=== PATIENT | female | born 1940 | race Caucasian/White ===

== ENCOUNTER → 2020-02-25 08:24 | Outpatient (CLI) | payer MEDICARE, SELFPAY ==
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
== END ==
PROVIDERS: PCP Internal Medicine; Visit Provider Physician Assistant Medical
DX: M47.22 Other spondylosis with radiculopathy, cervical region (principal)
CPT/HCPCS: 72141

== ENCOUNTER 2020-08-03 14:19 | Outpatient (CLI) | payer MEDICARE, SELFPAY | END 2020-08-03 14:20 | disposition home or self-care (01) | LOC: ANHCOVIDVC 14:19 | PROVIDERS: PCP Internal Medicine | DX: Z23 Encounter for immunization (principal) | CPT/HCPCS: 0001A; 91300 ==

== ENCOUNTER 2020-08-24 14:21 | Outpatient (CLI) | payer MEDICARE, SELFPAY | END 2020-08-24 14:22 | disposition home or self-care (01) | LOC: ANHCOVIDVC 14:21 | PROVIDERS: PCP Internal Medicine | DX: Z23 Encounter for immunization (principal) | CPT/HCPCS: 0002A; 91300 ==

== ENCOUNTER 2022-03-02 08:00 | Outpatient (NON) | payer MEDICARE, BC, SELFPAY | END 2022-03-02 08:01 | disposition home or self-care (01) | PROVIDERS: PCP Physician Assistant Medical; Visit Provider Nurse Practitioner | DX: L98.9 Disorder of the skin and subcutaneous tissue, unspecified (principal); M35.89 Other specified systemic involvement of connective tissue | CPT/HCPCS: 88305; 88342 ==

== ENCOUNTER 2023-03-27 09:00 | Outpatient (RCR) | payer MEDICARE, SELFPAY ==
--- NOTE | 2023-02-20 16:19 | OPREHPOC ---
Outpatient Therapy Plan of Care This is a Multidisciplinary Plan of Care that may contain components documented by all disciplines (PT, OT, and ST.) PT Problem 1 PT Problem #1 Knowledge Deficit PT Goal 1 Goal 1. Patient will perform independent HEP Target Visit 9 PT Problem 2 PT Problem #2 Impaired Strength PT Goal 1 Goal 1. Improve pelvic floor strength to 4/5 to decrease incontinence 2. Improve pelvic floor endurance to 10 seconds to decrease incontinence Target Visit 9 PT Problem 3 PT Problem #3 Impaired Functional ADLs PT Goal 1 Goal 1. Patient will report no more than 2 instances of urinary and fecal incontinence per week 2. Patient will have to use no more than 2 diapers per week for skin integrity Target Visit 9
--- NOTE | 2023-02-20 16:19 | PTOPEVAL1 ---
Assessment and note entered by Abby Gómez DPT Evaluation Information Assessment Status Evaluation Subjective Information Pt reports she has been having trouble for about 20 years and they are worsening over time. Notices she is losing stool within 15-30 minutes after eating. Occurs multiple times a day. Also reports loss of urine multiple times a day. Changes clothes frequently. Urinates about 10 times a day and multiple times a night. Urinary incontinence at least 3 times a day. Wears 3-4 diapers a day. Cannot hold urge to void at all. Denies pain with urination. BM multiple times a day, without pain but does report soreness due to rash from wearing diapers. No history of pelvic pain. Pt has been 3 times with 3 deliveries, vaginal deliveries (last with significant tearing/stitches ). Pt reports she does not notice a correlation with her diet and fecal incontinence. Liver transplant and previous labiectomy. Partial hysterectomy and tied up my bladder . No other b/ b issues. Reported Pain Level Pain Score 0: Self Report Assessment PT Clinical Summary The patient is presenting to skilled therapy with a 20 year history of worsening urinary and fecal incontinence. She presents with decreased pelvic floor strength and endurance as well as decreased overall core strength which are contributing to her incontinence multiple times daily. She will highly benefit from therapy to address these impairments in order to reduce incontinence and improve skin integrity from diaper use. Plan of Care Interventions Manual Therapy,Neuro Re-education,Patient/ Caregiver Education,Therapeutic Activities, Therapeutic Exercise PT Services Indicated Yes Treatment Frequency and 1 time a week for 8 weeks Duration These treatments will address the objective and functional deficits as defined above. The patient will be advanced safely and appropriately in order for the patient to progress towards his/her prior level of function. Additional exercises will be introduced and as well as a comprehensive home exercise program upon discharge, if needed, ?to ensure carryover of functional gains achieved in the clinic. This treatment plan has been reviewed and agreement upon by the patient.
--- NOTE | 2023-03-13 14:49 | PCPTNOTE ---
Patient called to cancel appointment on 03/13/23 due to illness.
--- NOTE | 2023-03-20 11:09 | OPREHPOC ---
Outpatient Therapy Plan of Care This is a Multidisciplinary Plan of Care that may contain components documented by all disciplines (PT, OT, and ST.) PT Problem 1 PT Problem #1 Knowledge Deficit PT Goal 1 Goal 1. Patient will perform independent HEP Target Visit 9 Progress Partially Met PT Problem 2 PT Problem #2 Impaired Strength PT Goal 1 Goal 1. Improve pelvic floor strength to 4/5 to decrease incontinence 2. Improve pelvic floor endurance to 10 seconds to decrease incontinence Target Visit 9 Progress Not Met PT Problem 3 PT Problem #3 Impaired Functional ADLs PT Goal 1 Goal 1. Patient will report no more than 2 instances of urinary and fecal incontinence per week 2. Patient will have to use no more than 2 diapers per week for skin integrity Target Visit 9 Progress Partially Met
--- NOTE | 2023-03-20 11:09 | PTOPPROGNS ---
Assessment and note entered by Abby Gómez DPT Evaluation Information Assessment Status Progress Subjective Information Pt reports she feels therapy is helping, is getting her incontinence less often. Urinary incontinence is occurring daily but unsure how many times. Fecal incontinence 2 times in the last week. Has started to notice a correlation with some dietary triggers. Using 3 diapers a day currently. Assessment PT Clinical Summary The patient has made some progress in therapy and reports only 2 instances of fecal incontinence in the last week. She continues to have daily urinary incontinence. She demonstrates improved hip strength but likely continued pelvic floor weakness. Due to her progress but continued incontinence, she will benefit from further therapy to reduce incontinence and improve function. Plan of Care Interventions Manual Therapy,Neuro Re-education,Patient/ Caregiver Education,Therapeutic Activities, Therapeutic Exercise PT Services Indicated Yes Treatment Frequency and 1 time a week for 4 visits Duration These treatments will address the objective and functional deficits as defined above. The patient will be advanced safely and appropriately in order for the patient to progress towards his/her prior level of function. Additional exercises will be introduced and as well as a comprehensive home exercise program upon discharge, if needed, ?to ensure carryover of functional gains achieved in the clinic. This treatment plan has been reviewed and agreement upon by the patient.
--- NOTE | 2023-04-03 08:55 | PCPTNOTE ---
Patient called to cancel appointment on 04/03/23.
--- NOTE | 2023-04-10 09:49 | PCPTNOTE ---
Patient called to cancel appointment 04/10/23 due to covid.
--- NOTE | 2023-04-17 09:26 | PCPTNOTE ---
Patient cancelled appointment 04/17/23 due to still not feeling well from covbritany. Will call back to schedule more after seeing her MD this week.
--- NOTE | 2023-05-18 10:03 | PTOPDC ---
Assessment and note entered by Abby Gómez DPT Evaluation Information Assessment Status Discharge - Pt Not Present Subjective Information - Assessment PT Clinical Summary Patient has not attended therapy since 03/25/23 and has not called back to reschedule after an illness. She will be discharged this date and need a new script to resume therapy in the future. Plan of Care PT Services Indicated No
== END 2023-05-18 14:27 | disposition home or self-care (01) ==
LOC: ANHPT 09:00
PROVIDERS: PCP Physician Assistant Medical; Visit Provider Physician Assistant Medical
DX: N81.89 Other female genital prolapse (principal)
CPT/HCPCS: 97112; 97161; 97530

== ENCOUNTER 2023-04-03 10:44 | Outpatient (CLI) | payer MEDICARE, SELFPAY ==
[2023-04-03 12:09] LABS: Influenza A QL RT-PCR Negative (Negative); Influenza B QL RT-PCR Negative (Negative); RSV RNA, RT-PCR Negative (Negative); SARS-CoV-2 RNA PCR Positive (Negative)
== END 2023-04-03 10:45 | disposition home or self-care (01) ==
PROVIDERS: PCP Physician Assistant Medical; Visit Provider Physician Assistant Medical
DX: R50.9 Fever, unspecified (principal); R05.9 Cough, unspecified; Z20.822 Contact with and (suspected) exposure to COVID-19
CPT/HCPCS: 87637

== ENCOUNTER 2023-09-25 12:39 | Outpatient (CLI) | payer MEDICARE, SELFPAY ==
--- NOTE | 2023-09-25 13:21 | ECHO_ITS ---
Patient Info Name: Katarina Arreola Age: 83 years : 1940 Gender: Female Ht: 63 in Wt: 197 lbs BSA: 2.03 m2 HR: 73 bpm BP: 145 / 93 mmHg Heart Rhythm: Sinus Rhythm Technical Quality: Fair Exam Date: 09/25/2023 2:16 PM Exam Location: [facility] Patient Status: Outpatient Admit Date: 09/25/2023 Staff Ordering Physician: Mary Jo Ruggiero PA-C Airport Manager: Ebony Walkre RDCS Attending Provider: Mary Jo Ruggiero PA-C Referring Physician: Monik POLANCO; Exam Type: CA echo doppler color flow Study Info Indications R06.09 - Other forms of dyspnea Complete two-dimensional, color flow and Doppler transthoracic echocardiogram is performed. Summary 1. Complete two-dimensional, color flow and Doppler transthoracic echocardiogram is performed. 2. Left ventricular chamber dimension is normal. 3. Left ventricular systolic function is hyperdynamic, estimated at >70%. 4. There is moderate concentric increased left ventricular wall thickness. 5. The left ventricular diastolic function is grade I diastolic dysfunction. 6. E/e' 18 is elevated. 7. Left atrial chamber dimension is mildly enlarged. 8. There is moderate aortic valve sclerosis. 9. The mitral valve has moderately calcified annulus. 10. No pulmonary hypertension, estimated pulmonary arterial systolic pressure is 25 mmHg. 11. There is trace pulmonic regurgitation. Left Ventricle E/e' 18 is elevated. Left ventricular chamber dimension is normal. Left ventricular systolic function is hyperdynamic, estimated at >70%. There is moderate concentric increased left ventricular wall thickness. The left ventricular diastolic function is grade I diastolic dysfunction. Right Ventricle Right ventricular systolic function is normal and with normal TAPSE 1.9 cm. Right ventricular chamber dimension is normal. Left Atria Left atrial chamber dimension is mildly enlarged. Right Atria Right atrial chamber dimension is normal. Aortic Valve The aortic valve is trileaflet. There is moderate aortic valve sclerosis. There is no aortic valve stenosis. There is no aortic valve regurgitation. Pulmonic Valve There is trace pulmonic regurgitation. Mitral Valve The mitral valve has moderately calcified annulus. There is no mitral valve stenosis. There is no mitral valve regurgitation. Tricuspid Valve There is no tricuspid valve regurgitation. No pulmonary hypertension, estimated pulmonary arterial systolic pressure is 25 mmHg. Pericardium/Pleural There is no pericardial effusion. Inferior Vena Cava Normal inferior vena cava with >50% collapse upon inspiration consistent with normal right atrial pressure, 5 mmHg. Aorta The aortic root size at the sinus of Valsalva is normal. Left Ventricular Outflow Tract Name Value Normal LVOT 2D LVOT Diameter 2.0 cm LVOT Doppler LVOT Peak Gradient 5 mmHg LVOT Mean Gradient 2 mmHg LVOT VTI 20 cm LVOT VTI/AV VTI Ratio 0.6 LVOT Stroke Volume 64 ml LVOT CO 4.5 l/min LVOT CI 2.2 l/min/m2 Pulmon
--- NOTE | 2023-09-26 12:31 | WPDPFTINT ---
PFT Procedure Performed PFT Procedure Performed Spirometry with Pre/Post Bronchodilator Plethysmography (Lung Vol) Diffusing Cap (DLCO) Flow Vol Loop PFT Interpretation Lung volumes were measured with the body plethysmography method. The diminished lung volumes are indicative of a restrictive respiratory disease. Spirometry showed diminished expiratory flow rates and a normal FEV1 to FVC ratio 75%, also consistent with restrictive respiratory disease. Following administration of a bronchodilator there was no significant increase in the expiratory flow rates. Lung diffusion capacity is moderately reduced at 45% predicted. The flow-volume loop is unremarkable. Impression: Mild restrictive respiratory disease. Moderately reduced lung diffusion capacity.
== END 2023-09-25 12:40 | disposition home or self-care (01) ==
LOC: ANHPFT 12:40
PROVIDERS: PCP Physician Assistant Medical; Visit Provider Physician Assistant Medical
DX: R06.09 Other forms of dyspnea (principal); J98.4 Other disorders of lung; I51.89 Other ill-defined heart diseases; I35.8 Other nonrheumatic aortic valve disorders; I34.81 Nonrheumatic mitral (valve) annulus calcification
CPT/HCPCS: 93306; 94060; 94726; 94729

== ENCOUNTER 2024-01-18 15:32 | Outpatient (CLI) | payer MEDICARE, SELFPAY ==
--- NOTE | ~2024-01-18 | CT_ITS ---
EXAMINATION: CT abdomen pelvis wo con DATE: 01/18/2024 16:03 INDICATION: Abdominal pain. TECHNIQUE: Computed tomography (CT) of the abdomen and pelvis was performed without intravenous contr ast. Automated exposure control and iterative reconstruction technique were employed. The dose-length product was 1028.10 mGy-cm. COMPARISON: None. FINDINGS: The visualized portions of the lung bases demonstrate mild atelectasis. No pleural effusion . The heart size is normal. There are coronary artery calcifications. No pericardial effusion. There is a supraumbilical ventral hernia containing fat. The liver is normal. Calcifications in the spleen are consistent with old granulomatous disease. The pancreas and adrenal glands are normal. There are cysts in the kidneys measuring up to 13 mm on the right. There is cortical thinning of the kidneys. T here are 2 stones in right kidney measuring up to 14 mm. There are scattered diverticula in the colon . There is focal wall thickening of the ascending colon with surrounding fat stranding. There is wall thickening of the terminal ileum. There is mild ileocolic lymphadenopathy with the largest node mervin uring 15 x 18 mm. There is trace pelvic ascites. Pelvic floor dysfunction is noted. There is moderate thoracic and lumbar spondylosis. IMPRESSION: 1. Wall thickening of the ascending colon and terminal ileum suspicious for diverticulitis versus mal ignancy. 2. Mild ileocolic lymphadenopathy. Reviewed, dictated and finalized at location A. IMPRESSION: 1. Wall thickening of the ascending colon and terminal ileum suspicious for div erticulitis versus malignancy. 2. Mild ileocolic lymphadenopathy.
== END 2024-01-18 15:33 | disposition home or self-care (01) ==
LOC: ANHIMG 15:35
PROVIDERS: PCP Physician Assistant Medical; Visit Provider Physician Assistant Medical
DX: R59.0 Localized enlarged lymph nodes (principal); R10.9 Unspecified abdominal pain; R19.7 Diarrhea, unspecified; R93.3 Abnormal findings on diagnostic imaging of other parts of digestive tract
CPT/HCPCS: 74176

== ENCOUNTER 2024-01-23 06:46 | Inpatient (IN) | payer MEDICARE, SELFPAY ==
[2024-01-23] VITALS (12 sets, daily range): BP systolic 131–160; BP diastolic 79–90; PULSE 78–87; RESP 15–20; TEMP 36.4–36.9; O2SAT 95–100; BMI 35.0
--- NOTE | ~2024-01-23 | US_ITS ---
EXAMINATION: US renal BI DATE: 01/24/2024 09:17 INDICATION: Acute on chronic kidney disease TECHNIQUE: Multiple ultrasound grayscale images of the kidneys were obtained. COMPARISON: None. FINDINGS: The right kidney measures 11.2 x 4.9 x 4.7 cm. The left kidney measures 10.2 x 5.1 x 4.6 cm. There is bilateral diffuse mild increased renal cortical echogenicity consistent with medical renal disease. There is a 5 mm hyperechoic lesion at the upper pole of the right kidney and 8 mm hyperechoic lesion at the lower pole of the right kidney, both corresponding to a macroscopic fat attenuation renal mavis omyolipomas on prior CT. 9 mm anechoic exophytic cyst at the mid right kidney. 6 mm echogenic and sha dowing stone at the lower pole of the right kidney. There is no hydronephrosis in either kidney. The bladder is normal. IMPRESSION: 1. Bilateral increased renal cortical edges to consistent with medical renal disease. 2. 6 mm nonobstructing stone at the lower pole of the left kidney. No hydronephrosis. 3. 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 Reviewed, dictated and finalized at location A. IMPRESSION: 1. Bilateral increased renal cortical edges to consistent with medical renal d isease. 2. 6 mm nonobstructing stone at the lower pole of the left kidney. No hydroneph rosis. 3. Incidental 9 mm cyst and 5 mm and 8 mm hyperechoic angiomyolipomas in the ri ght kidney.
--- NOTE | ~2024-01-23 | XR_ITS ---
EXAMINATION: XR chest 2V 01/23/2024 07:51 INDICATION: Chest trauma. Recent fall. PROCEDURE: AP and lateral views of the chest COMPARISON: Comparison to multiple prior studies sequentially, with oldest reviewed study dated 09/08. FINDINGS: The lungs are clear. The cardiomediastinal silhouette is within normal limits. There are no pleural effusions. There is no pneumothorax suspected. There are bilateral calcified granulomas of the lungs. IMPRESSION: 1: NO ACUTE CARDIOPULMONARY DISEASE. Reviewed, dictated and finalized at location B.
--- NOTE | 2024-01-23 06:54 | ECG_ITS ---
Test Date: 2024-01-23 06:59:57 Measurements Intervals [place] Rate: 80 P: -13 AR: 170 QRS: 9 QRSD: 98 T: 25 QT: 419 QTc: 486 Interpretive Statements SINUS RHYTHM BORDERLINE R WAVE PROGRESSION, ANTERIOR LEADS BORDERLINE ECG No previous ECG available for comparison Electronically Signed On 01-23-2024 08:26:47 CDT by Artie Gaines D.O.
[2024-01-23] MEDS: ASPIRIN 81 MG CHEWABLE TABLET 324 MG PO (06:58)
[2024-01-23 07:27] LABS: Basophils Absolute Auto 0.1 K/mm3 (0.0-0.1); Basophils Percent Auto 0.9 % (0.2-1.2); Eosinophils Absolute Auto 0.3 K/mm3 (0-0.3); Eosinophils Percent Auto 4.2 % (0-4.4); Hematocrit 33.1 % (37.0-47.0); Hemoglobin 10.9 g/dL (12.0-15.0); Immature Granulocyte Percent A 1.4 % (0-0.5); Lymphocytes Absolute Auto 0.75 K/mm3 (0.9-3.2); Lymphocytes Percent Auto 10.2 % (18.3-44.2); Mean Corpuscular HGB Conc 32.9 g/dl (32-36); Mean Corpuscular Hemoglobin 28.4 pg (26-34); Mean Corpuscular Volume 86.2 fl (80-100); Mean Platelet Volume 10.8 fl (7.4-10.4); Monocytes Absolute Auto 0.5 K/mm3 (0.1-0.6); Monocytes Percent Auto 7.2 % (2.6-8.5); Neutrophils Absolute Auto 5.6 K/mm3 (1.3-6.7); Neutrophils Percent Auto 76.1 % (45.5-73.1); Platelet Count Result 290 k/mm3 (150-375); Red Blood Count 3.84 M/mm3 (4.2-5.4); Red Cell Distribution Width 14.6 % (11.5-14.5); White Blood Count 7.4 K/mm3 (4.5-10.0)
[2024-01-23] MEDS: LIDOCAINE 5% PATCH 2 PATCH TRANSDERM (07:34)
[2024-01-23] MEDS: ACETAMINOPHEN 500 MG TABLET 1000 MG PO (07:34)
[2024-01-23] MEDS: TACROLIMUS 0.5 MG CAPSULE 2 MG PO ×2 (07:35→17:53)
[2024-01-23 07:36] LABS: Alanine Aminotransferase 8 U/L (6-35); Albumin Level 3.7 g/dL (3.5-5.1); Alkaline Phosphatase 73 U/L (38-126); Anion Gap 20 mmol/L (4-12); Aspartate Amino Transferase 15 U/L (14-36); Bilirubin,Total 0.6 mg/dL (0.2-1.3); Blood Urea Nitrogen 74 mg/dL (7-17); Calcium 8.6 mg/dL (8.4-10.2); Carbon Dioxide 14 mmol/L (22-30); Chloride 95 mmol/L (98-107); Estimated CRCL calculation 5 ml/min; Estimated Glomerular Filt Rate 5; Glucose 152 mg/dL (65-110); Lipase 142 U/L (23-300); Potassium 3.9 mmol/L (3.4-5.0); Sodium 129 mmol/L (137-145)
[2024-01-23 07:42] LABS: INR 1.2; Prothrombin Time 15.2 Seconds (11.1-14.7)
[2024-01-23 07:43] LABS: Partial Thromboplastin Time 34.4 Seconds (22.3-36.8)
--- NOTE | 2024-01-23 07:45 | PC.NURSE ---
Pt to XRAY via stretcher at this time.
[2024-01-23 07:48] LABS: Troponin I < 0.012 ng/mL (0.000-0.034)
[2024-01-23] MEDS: LACTATED RINGERS 1,000 ML 999 ML IV CONT ×2 (08:18→09:45)
--- NOTE | 2024-01-23 09:10 | ED.CHESTPAIN ---
HPI - Chest Pain General Chief Complaint: Chest Pain Stated Complaint: upper CP Time Seen by Provider: 01/23/24 06:58 History of Present Illness HPI narrative: Patient has some pain to her bilateral upper chest where she smacked her chest against a table 2 days ago. Related Data Home Medications Medication Instructions Recorded Confirmed [id number] ac 400 1 tablet PO .od 01/10/22 01/18/24 mcg-calcium carb 500 mg-vit K1 20 mcg tablet (Women's 50 Plus Multivitamin) tacrolimus 1 mg capsule, 2 mg PO BID 05/23/22 01/18/24 immediate-release budesonide-formoterol HFA 160 2 puff inhalation Q12H 09/05/23 01/18/24 mcg-4.5 mcg/actuation aerosol inhaler (Symbicort) Allergies Allergy/AdvReac Type Severity Reaction Status Date / Time hydromorphone Allergy Mild HIVES, Verified 01/23/24 10:14 SWOLLEN codeine Allergy Unknown Itching Verified 01/23/24 10:14 Iodinated Contrast Media Allergy Unknown Rash Verified 01/23/24 10:14 Contrast Media Allergy Mild Rash Uncoded 01/23/24 10:14 Review of Systems Review of Systems: All systems reviewed & are unremarkable except as noted in HPI and below PMFSH Past Medical History Medical History (Updated 01/23/24 @ 09:44 by Brenna Marin MD) Aortic valve sclerosis Diabetes Dry eyes History of retinal detachment Mitral valve annular calcification Obesity Skin lesion of back Surgical History Surgical History (Updated 01/18/24 @ 14:40 by Mary Jo Ruggiero PA-C) History of liver transplant 03/2010 Family History Family History Mother Cerebrovascular accident Sibling Family history of lung cancer Family history of malignant neoplasm of breast in first degree relative Other Family history of malignant neoplasm Social History Social History Smoking packs per day: 0.5 Smoking cigarettes per day: 10.0 Years smoked: 15 Smoking pack-years: 7.50 Smoking status: Former smoker Tobacco type: cigarettes Second hand tobacco smoke exposure: Yes Smoking end date: 05/21/79 Alcohol intake: former Alcohol use details: rare occasions Substance use: never Substance use type: does not use Lack of Transportation: No Lack of Food: Never True Current Housing: I Have Housing Concerned About Future Housing: No Difficulty Paying Gas/Electric Bills: No Difficulty Paying for Meds: No Currently Unemployed: No Education: Associate Degree Difficulty w/ Childcare or Family Care: No Living arrangements: with family Occupation/Education: retired Gender identity (if verbalized by the patient): Female Sexual Orientation (if Verbalized by the Patient): Straight or Heterosexual Exam Narrative: EXAMINATION OF ORGAN SYSTEMS/BODY AREAS: Constitutional: Vital signs per nursing GENERAL:[No acute distress, non-toxic appearing.] HEAD: Normal with no signs of head trauma. EYES: EOMI, conjunctiva normal ENT: Hearing grossly intact LUNGS: Nonlabored breathing. HEART: Chest wall tenderness bilaterally ABD: [Soft], [nontender to palpation] EXT: Normal range of motion SKIN: [No rashes or lesions.] NEURO: [Alert and oriented x 3. No gross focal sensory or strength deficits.] PSYCH: Normal affect Course Vital Signs Vital signs: Vital Signs Temperature 97.6 F 01/23/24 06:48 Pulse Rate 81 01/23/24 06:48 Respiratory Rate 19 01/23/24 06:48 Pulse Oximetry 95 01/23/24 06:48 Oxygen Delivery Room Air 01/23/24 06:48 Temperature 97.7 F 01/23/24 10:16 Pulse Rate 78 01/23/24 10:16 Respiratory Rate 19 01/23/24 10:16 Blood Pressure 150/88 H 01/23/24 10:16 Pulse Oximetry 98 01/23/24 10:16 Oxygen Delivery Room Air 01/23/24 07:00 MDM - Chest Pain MDM Narrative Medical decision making narrative: Patient presents with upper chest pain and after knocking into a table. It
--- NOTE | 2024-01-23 09:38 | ECG_ITS ---
Test Date: 2024-01-23 09:45:06 Measurements Intervals [place] Rate: 76 P: -34 LA: 170 QRS: 23 QRSD: 89 T: 30 QT: 418 QTc: 471 Interpretive Statements SINUS RHYTHM LOW QRS VOLTAGE IN PRECORDIAL LEADS BASELINE ARTIFACT- I, II, III, AVR, AVL, AVF, V6 BORDERLINE ECG Compared to ECG 01/23/2024 06:59:57 Low QRS voltage now present Electronically Signed On 01-23-2024 09:51:37 CDT by Artie Gaines D.O.
[2024-01-23 10:24] LABS: Troponin I < 0.012 ng/mL (0.000-0.034)
--- NOTE | 2024-01-23 10:59 | ADMGEN ---
This patient, Katarina Arreola, was admitted to [facility] Surg Room 310-01. Patient/family oriented to hospital policies and general routines including ID bracelet, bed and alarms, visiting hours, pain management, procedures, bathroom and other care routines, personal items, smoking policy, room service/diet, and visiting hours. Information on how to activate the Rapid Response Team has been discussed. Patient/Family are encouraged to report perceived risks to care and to ask questions if they do not understand what they are told or what they should do.
--- NOTE | 2024-01-23 12:53 | PM.IMHP ---
H&P: HPI History of Present Illness Date/Time: 01/23/24 12:53 Chief Complaint: Chest Wall Pain Narrative: 83 y/o F presents here with chest wall pain with PMH of liver transplant recipient, AV sclerosis, DM, retinal detachment, and obesity. The patient presents here from home via EMS for further evaluation of upper chest wall pain. The patient has been experiencing upper chest wall pain since Sunday (01/20) after the patient experienced a syncopal event. She reports that she was playing a game at her computer when she got up and her vision became dark. She believes she fell onto her desk due to the location of her pain across her upper chest. Patient does not believe she had a head strike. Patient reports small puddle of clear liquid near her mouth and she was incontinent of urine. Patient cannot estimate length of time of loss of consciousness. After event she did not have significant pain and was able to shower. When she woke the following morning she had significant pain to her upper chest. Proceeding syncopal event the patient was diagnosis of diverticulitis and was prescribed Metronidazole and Cipro on 01/15, due to complete course on 01/25. She reports she was experiencing lower right quadrant pain starting on 01/14, with accompanying decreased appetite leading to poor p.o. intake, and diarrhea. Urine output has been scant starting about 3-4 days ago. Patient currently lives at home alone. Patient also has history of liver transplant, receives care at [facility], and is on Tacrolimus. Patient has hx of diabetes, saw eyeglass cutter at [facility], placed on Sinjardia - patient believes medication caused her fatigue and explosive diarrhea. Patient last took medication in November. Patient had follow-up after she had stopped medication and she was okay with stopping medication completely due to A1C being 6.5%. Initial VS at presentation: 97.6? F, HR 81, RR 19, 136/90, and 95% on RA. ED workup showed: No leukocytosis, hemoglobin 10.9 (previously 12.2 on 04/2023), INR 1.2, sodium 129, CO2 14, gap 20, BUN 74, creatinine 8.0 and GFR 5 (previously 1.51 and GFR 35 on 04/2023), initial troponin negative, glucose 1.22, and normal LFTs. Review of Systems Review of Systems: All systems reviewed & are unremarkable except as noted in HPI and below PMFSH Past Medical History Medical History Aortic valve sclerosis Arthritis Benign essential tremor Chronic bronchitis Diabetes Dry eyes Eczema History of GI bleed History of retinal detachment Liver transplant recipient Mitral valve annular calcification Obesity Psoriasis Renal insufficiency Surgical History Surgical History History of bladder suspension procedure History of liver transplant 03/2010 History of tonsillectomy Family History Family History Mother Cerebrovascular accident Sibling Family history of lung cancer Family history of malignant neoplasm of breast in first degree relative Other Family history of malignant neoplasm Social History Social History Smoking packs per day: 0.5 Smoking cigarettes per day: 10.0 Years smoked: 15 Smoking pack-years: 7.50 Smoking status: Former smoker Second hand tobacco smoke exposure: Yes Alcohol intake: former Alcohol use details: rare occasions Substance use: never Substance use type: does not use Do You Feel Safe in your Home?: Yes Lack of Transportation: No Lack of Food: Never True Current Housing: I Have Housing Concerned About Future Housing: No Difficulty Paying Gas/Electric Bills: No Difficulty Paying for Meds: No Currently Unemployed: No Education: Associate Degree Difficulty w/ Childcare or Family Care: No Living arrangements: with family Occupation/Education: retired [employer]
--- NOTE | 2024-01-23 13:45 | PM.CNNEP ---
Assessment and Plan Assessment and plan (1) DEBBIE (acute kidney injury): Code(s): N17.9 - Acute kidney failure, unspecified Status: Acute Assessment and Plan: significant decline noted by admission labs etiology not clear but several possibilities: prerenal factors relative hypotension (prior to arrival) antibiotic reaction(?) tacrolimus toxicity (?) infection (diverticulitits) other(?) check urine studies, renal ultrasound, and CPK; check tacrolimus level agree with trial of IVFs follow trend of renal function and UOP (2) Chronic kidney disease, stage 3: Code(s): N18.30 - Chronic kidney disease, stage 3 unspecified Status: Chronic Assessment and Plan: baseline creatinine runs around 1.1 - 1.5mg/dl this cause her to fluctuate between CKD stage 3A and stage 3B presumably due to obesity, age, and distant history of diabetes (3) Anterior chest wall pain: Code(s): R07.89 - Other chest pain Status: Acute Assessment and Plan: no acute findings by imaging pain control (4) Diverticulitis: Code(s): K57.92 - Diverticulitis of intestine, part unspecified, without perforation or abscess without bleeding Status: Acute Assessment and Plan: diagnosed by outpatinet CT scan remains on metronidazole and ciprofloxacin continues supportive care (5) Diabetes: Qualifiers: Diabetes mellitus type: type 2 Diabetes mellitus machine precision etcher insulin use: without snf use Diabetes mellitus complication status: without complication Qualified Code(s): E11.9 - Type 2 diabetes mellitus without complications Code(s): E11.9 - Type 2 diabetes mellitus without complications Status: Chronic Assessment and Plan: diet controlled at this time follo accu-cheks glycemic control per hospitalists I will continue to follow the patient with you while he remains hospitalized and make further recommendations as deemed necessary. Thank you for allowing me to participate in the care of this patient. History of Present Illness Reason for Consult Consult date: 01/23/24 Reason for consult: acute renal failure (on chronic kidney disease) Chief Complaint Chief complaint: arf History of Present Illness Narrative: The patient is an 83-year-old female with a past medical history as outlined below who presented to [facility] for further evaluation of chest wall pain. The patient apparently had a syncopal episode a couple of days ago. She was apparently playing a game on her computer when she suddenly got up, her vision became dark, and she think she fell on to her desk with her upper chest area striking the desk thereby causing the chest wall pain. She does not think that she hit her head. Is difficult to say how long she was unconscious but them when she did wake up, she noted a small puddle clear liquid near her mouth and was apparently incontinent of urine. She did not have any chest wall pain at that time but then the next day, when she woke up, she noted the chest wall discomfort. It should be noted that prior to these events, she was recently diagnosed with diverticulitis and was prescribed antibiotics in the form of oral ciprofloxacin and metronidazole for treatment. She had been experiencing right lower quadrant pain since 01/14 in association with poor oral intake and diarrhea. An outpatient imaging study done for the symptoms discovered the aforementioned diverticulitis which subsequently led to the initiation of antibiotic therapy. She reports that her urine output has declined in the last 3-4 days subsequent to her diminished oral/fluid intake. In any event, due to discomfort in her chest wall and persistence of this symptom, she presented to the emergency room for further assessment. Workup and evaluation emergency room demonstrated the patient no acute distress and stable vital signs. rou
[2024-01-23 13:56] LABS: Phosphorus 7.6 mg/dL (2.5-4.5)
[2024-01-23 13:57] LABS: Troponin I < 0.012 ng/mL (0.000-0.034)
[2024-01-23 14:05] LABS: Creatine Kinase 25 U/L (30-135)
[2024-01-23 14:10] LABS: Hemoglobin A1C 6.9 % (<5.7)
[2024-01-23] MEDS: SODIUM CHLORIDE 0.9% IV 1,000 ML 100 ML IV CONT (15:51)
[2024-01-23] MEDS: metroNIDAZOLE 500 MG TABLET PO ×2 (15:52→22:58)
[2024-01-23] MEDS: CIPROFLOXACIN 400 MG/D5W 200ML 200 ML 200 MG IVPB (15:52)
[2024-01-23] MEDS: METOCLOPRAMIDE HCL INJ 10 MG/2 ML VIAL 5 MG IV PUSH ×2 (17:54→22:58)
[2024-01-23 19:05] LABS: Add Urine Microscopic? YES; Appearance Urine Clear (Clear); Bacteria Urine None Seen /hpf; Bilirubin Urine Negative (Negative); Blood Urine Negative (Negative); Color Urine Yellow (Yellow); Creatinine Urine 42.7 mg/dL; Glucose Urine UA Negative (Negative); Ketones Urine Negative (Negative); Leukocyte Esterase Ur Trace LEU/UL (Negative); Need Manual Microscopic Reviewed; Nitrate Urine Negative (Negative); Non Pathogenic Casts 0-2; Protein Urine Trace mg/dL (Negative); RBC Urine 0-2 /hpf (0-2); Sodium Urine Random 46 meq/L; Specific Grav Ur 1.007 (1.001-1.035); Squamous Epithelial Cell Urine Few /hpf (Few); Total Protein Urine Random 24 mg/dL; Ur Ttl Prot Creatinine Ratio 0.56 mg/mg (0-0.20); Urobilinogen Urine 0.2 mg/dL (<2.0); WBC Urine 0-5 /hpf (0-3)
[2024-01-23 19:16] LABS: Urea Random Urine 211 MG/DL
[2024-01-23 20:31] LABS: Eosinophil Urine None Seen % (None Seen); Urine Eos QC 2nd Tech Confirmed
[2024-01-23 22:02] LABS: Anion Gap 18 mmol/L (4-12); Blood Urea Nitrogen 68 mg/dL (7-17); Calcium 7.9 mg/dL (8.4-10.2); Carbon Dioxide 13 mmol/L (22-30); Chloride 96 mmol/L (98-107); Estimated CRCL calculation 6 ml/min; Estimated Glomerular Filt Rate 5; Glucose 127 mg/dL (65-110); Potassium 3.8 mmol/L (3.4-5.0); Sodium 127 mmol/L (137-145)
[2024-01-23] MEDS: ACETAMINOPHEN 325 MG TABLET 650 MG PO (23:12)
[2024-01-24] VITALS (8 sets, daily range): BP systolic 140–145; BP diastolic 73–84; PULSE 73–85; RESP 16–18; TEMP 36.6–36.7; O2SAT 93–95
[2024-01-24] MEDS: fentaNYL CITRATE INJ (*CRX) 100 MCG/2 ML VIAL 25 MCG IV PUSH ×2 (01:01→04:48)
[2024-01-24] MEDS: SODIUM CHLORIDE 0.9% IV 1,000 ML 100 ML IV CONT (03:22)
[2024-01-24] MEDS: metroNIDAZOLE 500 MG TABLET PO ×2 (05:54→13:22)
[2024-01-24] MEDS: METOCLOPRAMIDE HCL INJ 10 MG/2 ML VIAL 5 MG IV PUSH ×3 (05:54→17:28)
[2024-01-24 08:22] LABS: Basophils Absolute Auto 0.1 K/mm3 (0.0-0.1); Basophils Percent Auto 0.8 % (0.2-1.2); Eosinophils Absolute Auto 0.3 K/mm3 (0-0.3); Eosinophils Percent Auto 4.5 % (0-4.4); Hematocrit 30.7 % (37.0-47.0); Hemoglobin 10.3 g/dL (12.0-15.0); Immature Granulocyte Absolute 0.12 K/mm3 (0.00-0.031); Immature Granulocyte Percent A 1.6 % (0-0.5); Lymphocytes Absolute Auto 0.73 K/mm3 (0.9-3.2); Lymphocytes Percent Auto 9.7 % (18.3-44.2); Mean Corpuscular HGB Conc 33.6 g/dl (32-36); Mean Corpuscular Volume 86.5 fl (80-100); Mean Platelet Volume 10.6 fl (7.4-10.4); Monocytes Absolute Auto 0.5 K/mm3 (0.1-0.6); Neutrophils Absolute Auto 5.8 K/mm3 (1.3-6.7); Neutrophils Percent Auto 77.4 % (45.5-73.1); Platelet Count Result 270 k/mm3 (150-375); Red Blood Count 3.55 M/mm3 (4.2-5.4); Red Cell Distribution Width 14.5 % (11.5-14.5); White Blood Count 7.5 K/mm3 (4.5-10.0)
--- NOTE | 2024-01-24 08:22 | PM.IMPN ---
Progress Note: A&P Assessment and Plan (1) Acute renal failure: Qualifiers: Acute renal failure type: unspecified Qualified Code(s): N17.9 - Acute kidney failure, unspecified Code(s): N17.9 - Acute kidney failure, unspecified Status: Acute Assessment and Plan: - creatinine 8.0 and GFR 5 (previously 1.51 and GFR 35 on 04/2023) - add CK, urine sodium, urine protein/creatinine, serum osmolality, urine osmolality - add UA - FeNA 6.4% indicating AIN - monitor I&Os - reviewed home medications, Tacrolimus continued. Cipro renally adjusted, Flagyl continued. Non-essential medications held. - nephrology consulted, spoke with Sonya MCKENZIE. 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 - Sodium bicarb 650 mg PO BID (2) Anterior chest wall pain: Code(s): R07.89 - Other chest pain Status: Acute Assessment and Plan: - CXR showing no acute findings - lidocaine patch, Tylenol, and Fentanyl for pain management. Patient reported little relief with lidocaine patch and Tylenol. Limited due to allergies. - Can possible add oxy vs [place] for pain management and treat her side effects of rash with Benadryl - consider PT/OT evaluation and treat if no improvement over the next 24 hours to prevent deconditioning - incentive spirometer initiated (3) Diverticulitis: Code(s): K57.92 - Diverticulitis of intestine, part unspecified, without perforation or abscess without bleeding Status: Acute Assessment and Plan: - started Cipro and Flagyl on 01/15, completion date on 01/25. Flagyl continued p.o., Cipro renally adjusted - monitor I&Os (4) Diabetes: Qualifiers: Diabetes mellitus complication status: without complication Diabetes mellitus retirement insulin use: without superintendent marine oil terminal use Diabetes mellitus type: type 2 Qualified Code(s): E11.9 - Type 2 diabetes mellitus without complications Code(s): E11.9 - Type 2 diabetes mellitus without complications Status: Chronic Assessment and Plan: - patient not on diabetes medications, last A1c 6.5% this past summer (done through her bottom precipitator operator at [facility]) - A1C 7.1% on 04/2023, update Plan Diet: Renal dialysis GI Prophylaxis: Not currently indicated DVT Prophylaxis: SCDs Lines: Peripheral Code Status: DNR Subjective Date/time seen: 01/24/24 08:22 Interval history: 83 y/o F presents here with chest wall pain with PMH of liver transplant recipient, AV sclerosis, DM, retinal detachment, and obesity. She presented with chest wall discomfort after a recent syncopal episode. 01/23: She is seen resting in bed with her son and granddaughter at the bedside. She reports initially having complaints of right lower quadrant pain, cramping with diarrhea and subjective chills for about a week. She was started on antibiotics by her primary care provider for diverticulitis. The abdominal pain has improved but she continues to have loose stools up to 4-5 times a day. She also continues to have diffuse chest wall discomfort with ecchymosis after having a syncopal episode. Her chest pain is reproducible and is worse with inspiration. She reports a poor appetite. She does have some exertional dyspnea as well as a chronic cough after having COVID in the fall. Her PCP did start her on Symbicort which has been helping. She has been having less frequent urine output but she reports the urine is still clear. Review of Systems Review of Systems: All
[2024-01-24 08:38] LABS: Alanine Aminotransferase 7 U/L (6-35); Albumin Level 3.4 g/dL (3.5-5.1); Alkaline Phosphatase 58 U/L (38-126); Anion Gap 19 mmol/L (4-12); Aspartate Amino Transferase 16 U/L (14-36); Bilirubin,Total 0.5 mg/dL (0.2-1.3); Blood Urea Nitrogen 64 mg/dL (7-17); Calcium 7.7 mg/dL (8.4-10.2); Carbon Dioxide 11 mmol/L (22-30); Chloride 98 mmol/L (98-107); Creatine Kinase 35 U/L (30-135); Estimated CRCL calculation 6 ml/min; Estimated Glomerular Filt Rate 5; Glucose 154 mg/dL (65-110); Potassium 3.7 mmol/L (3.4-5.0); Sodium 128 mmol/L (137-145)
[2024-01-24] MEDS: fentaNYL CITRATE INJ (*CRX) 100 MCG/2 ML VIAL 50 MCG IV PUSH ×3 (09:30→17:28)
[2024-01-24] MEDS: CIPROFLOXACIN 500 MG TAB PO (09:39)
[2024-01-24] MEDS: TACROLIMUS 0.5 MG CAPSULE 2 MG PO ×2 (09:39→17:28)
[2024-01-24] MEDS: LIDOCAINE 5% PATCH 1 PATCH TRANSDERM (09:39)
--- NOTE | 2024-01-24 10:54 | PM.PNNEP ---
Progress Note: A&P Assessment and Plan (1) DEBBIE (acute kidney injury): Code(s): N17.9 - Acute kidney failure, unspecified Status: Acute Assessment and Plan: significant decline noted by admission labs etiology not clear but several possibilities: prerenal factors relative hypotension (prior to arrival) antibiotic reaction(?) tacrolimus toxicity (?) infection (diverticulitits) other(?) evaluation to date notedL renal u/s consistent with CKD but no obstruction urine electrolytes non-prerenal mild proteinuria CPK okay urine eosinophils negative tacrolimus level pending continuing trial of IVFs follow trend of renal function and UOP (2) Chronic kidney disease, stage 3: Code(s): N18.30 - Chronic kidney disease, stage 3 unspecified Status: Chronic Assessment and Plan: baseline creatinine runs around 1.1 - 1.5mg/dl this cause her to fluctuate between CKD stage 3A and stage 3B presumably due to obesity, age, and distant history of diabetes (3) Metabolic acidosis: Code(s): E87.20 - Acidosis, unspecified Status: Acute Assessment and Plan: presumably secondary to DEBBIE on CKD and IVF resuscitation will add oral sodium bicarbonate consider adding bicarb to IVFs if worsens check lactic acid (4) Anterior chest wall pain: Code(s): R07.89 - Other chest pain Status: Acute Assessment and Plan: no acute findings by imaging pain control (5) Diverticulitis: Code(s): K57.92 - Diverticulitis of intestine, part unspecified, without perforation or abscess without bleeding Status: Acute Assessment and Plan: diagnosed by outpatinet CT scan remains on metronidazole and ciprofloxacin continues supportive care (6) Diabetes: Qualifiers: Diabetes mellitus type: type 2 Diabetes mellitus longwall foreman insulin use: without jail use Diabetes mellitus complication status: without complication Qualified Code(s): E11.9 - Type 2 diabetes mellitus without complications Code(s): E11.9 - Type 2 diabetes mellitus without complications Status: Chronic Assessment and Plan: diet controlled at this time follo accu-cheks glycemic control per hospitalists Will continue to follow. Subjective Date/time seen: 01/24/24 10:54 Interval history: Follow-up for acute kidney injury/acute renal failure on chronic kidney disease. No apparent distress voiced at the the time of my visit aside from chest wall discomfort still being present particulary with deep breathing and on/off abdominal pain; mild improvement in renal function/creatinine with IVF resuscitation but mentions she has noted more urine output than prior to admission; family at bedside and we discussed the case. Exam Narrative: General: elderly but WD/WN female in NAD Heart: normal S1 and S2; no rub Lungs: clear to auscultation Abdomen: soft, mild TTP, nondistended, positive bowel sounds Extremities: no cyanosis or clubbing; no edema Skin: warm and dry Objective Data Vital Signs Vital Signs: Vital Signs Temp Pulse Resp BP Pulse Ox O2 Del Method 01/24/24 09:39 Room Air 01/24/24 09:39 78 01/24/24 09:24 93 Room Air 01/24/24 04:00 73 01/24/24 05:27 98.0 F 77 18 145/84 H 95 01/24/24 00:00 78 01/23/24 20:00 79 20 96 Room Air 01/23/24 20:00 79 01/23/24 20:15 98.5 F 79 20 142/81 H 96 Intake/Output Intake/Output: Intake & Output 01/21/24 01/22/24 01/23/24 01/24/24 23:59 23:59 23:59 23:59 Intake Total 3340 1500 Output Total 600 400 Balance 2740 1100 Meds/Results Medications: Active Medications Generic Name Dose Route Start Last Admin Trade Name Freq PRN Reason Stop Dose Admin Acetaminophen 650 mg 01/23/24 13:22 01/23/24 23:12 Acetaminophen 325 Mg Tablet PO 650 mg Q4H PRN Administration Mild Pa
--- NOTE | 2024-01-24 10:54 | P.PNNP_ITS ---
Progress Note: A&P Assessment and Plan (1) DEBBIE (acute kidney injury): Code(s): N17.9 - Acute kidney failure, unspecified Status: Acute Assessment and Plan: * significant decline noted by admission labs * etiology not clear but several possibilities: * prerenal factors * relative hypotension (prior to arrival) * antibiotic reaction(?) * tacrolimus toxicity (?) * infection (diverticulitits) * other(?) * evaluation to date notedL * renal u/s consistent with CKD but no obstruction * urine electrolytes non-prerenal * mild proteinuria * CPK okay * urine eosinophils negative * tacrolimus level pending * continuing trial of IVFs * follow trend of renal function and UOP (2) Chronic kidney disease, stage 3: Code(s): N18.30 - Chronic kidney disease, stage 3 unspecified Status: Chronic Assessment and Plan: * baseline creatinine runs around 1.1 - 1.5mg/dl * this cause her to fluctuate between CKD stage 3A and stage 3B * presumably due to obesity, age, and distant history of diabetes (3) Metabolic acidosis: Code(s): E87.20 - Acidosis, unspecified Status: Acute Assessment and Plan: * presumably secondary to DEBBIE on CKD and IVF resuscitation * will add oral sodium bicarbonate * consider adding bicarb to IVFs if worsens * check lactic acid (4) Anterior chest wall pain: Code(s): R07.89 - Other chest pain Status: Acute Assessment and Plan: * no acute findings by imaging * pain control (5) Diverticulitis: Code(s): K57.92 - Diverticulitis of intestine, part unspecified, without perforation or abscess without bleeding Status: Acute Assessment and Plan: * diagnosed by outpatinet CT scan * remains on metronidazole and ciprofloxacin * continues supportive care (6) Diabetes: Qualifiers: Diabetes mellitus type: type 2 Diabetes mellitus ocean transportation intermediary insulin use: without prison use Diabetes mellitus complication status: without complication Qualified Code(s): E11.9 - Type 2 diabetes mellitus without complications Code(s): E11.9 - Type 2 diabetes mellitus without complications Status: Chronic Assessment and Plan: * diet controlled at this time * follo accu-cheks * glycemic control per hospitalists Will continue to follow. Subjective Date/time seen: 01/24/24 10:54 Interval history: Follow-up for acute kidney injury/acute renal failure on chronic kidney disease. No apparent distress voiced at the the time of my visit aside from chest wall discomfort still being present particulary with deep breathing and on/off abdominal pain; mild improvement in renal function/creatinine with IVF resuscitation but mentions she has noted more urine output than prior to adm ission; family at bedside and we discussed the case. Exam Narrative: General: elderly but WD/WN female in NAD Heart: normal S1 and S2; no rub Lungs: clear to auscultation Abdomen: soft, mild TTP, nondistended, positive bowel sounds Extremities: no cyanosis or clubbing; no edema Skin: warm and dry Objective Data Vital Signs Vital Signs: Vital Signs Temp Pulse Resp BP Pulse Ox O2 Del Method 01/24/24 09:39 Room Air 01/24/24 09:39 78 01/24/24 09:24 93 Room Air 01/24/24 04:00 73 01/23
[2024-01-24] MEDS: SODIUM BICARBONATE TAB 650 MG TABLET PO (17:28)
[2024-01-24] MEDS: NYSTATIN 100,000 UNITS/ML SUSP 5 ML ORAL.SUSP PO (17:28)
--- NOTE | 2024-01-24 17:37 | PM.TDS ---
Transfer Discharge Sum: Prov Provider Date of admission: 01/23/24 09:44 Primary care physician: Mary Jo Ruggiero PA-C Admitting clinician: Angelica Fontenot MD Consults: 01/23/24 09:45 Consult to Physician Routine Comment: Consulting Provider: Hanna Hassan Reason for consultation: ARF Has provider been notified: Yes DS: Admitting Diagnosis Discharge Date 9-5 Admitting Diagnosis Chest wall discomfort DS: Discharge Diagnosis Discharge Diagnosis (1) Acute renal failure: Qualifiers: Acute renal failure type: unspecified Qualified Code(s): N17.9 - Acute kidney failure, unspecified Code(s): N17.9 - Acute kidney failure, unspecified Status: Acute Assessment and Plan: - creatinine 8.0 and GFR 5 (previously 1.51 and GFR 35 on 04/2023) - add CK, urine sodium, urine protein/creatinine, serum osmolality, urine osmolality - add UA - FeNA 6.4% indicating AIN - monitor I&Os - reviewed home medications, Tacrolimus continued. Cipro renally adjusted, Flagyl continued. Non-essential medications held. - nephrology consulted, spoke with Sonya MCKENZIE. 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 - Sodium bicarb 650 mg PO BID (2) Anterior chest wall pain: Code(s): R07.89 - Other chest pain Status: Acute Assessment and Plan: - CXR showing no acute findings - lidocaine patch, Tylenol, and Fentanyl for pain management. Patient reported little relief with lidocaine patch and Tylenol. Limited due to allergies. - Can possible add oxy vs [facility] for pain management and treat her side effects of rash with Benadryl - consider PT/OT evaluation and treat if no improvement over the next 24 hours to prevent deconditioning - incentive spirometer initiated (3) Diverticulitis: Code(s): K57.92 - Diverticulitis of intestine, part unspecified, without perforation or abscess without bleeding Status: Acute Assessment and Plan: - started Cipro and Flagyl on 01/15, completion date on 01/25. Flagyl continued p.o., Cipro renally adjusted - monitor I&Os (4) Diabetes: Qualifiers: Diabetes mellitus type: type 2 Diabetes mellitus termite control servicer insulin use: without fdc use Diabetes mellitus complication status: without complication Qualified Code(s): E11.9 - Type 2 diabetes mellitus without complications Code(s): E11.9 - Type 2 diabetes mellitus without complications Status: Chronic Assessment and Plan: - patient not on diabetes medications, last A1c 6.5% this past summer (done through her certified emergency vehicle technician at [facility]) - A1C 7.1% on 04/2023, update Plan Diet: Renal dialysis GI Prophylaxis: Not currently indicated DVT Prophylaxis: SCDs Lines: Peripheral Code Status: DNR Transfer Discharge Sum: Med Medications Active and Home Medications: Home Medications [id number] ac 400 mcg-calcium carb 500 mg-vit K1 20 mcg tablet (Women's 50 Plus Multivitamin) 1 tablet PO .od 01/10/22 [History Confirmed 01/23/24] tacrolimus 1 mg capsule, immediate-release 2 mg PO BID 05/23/22 [History Confirmed 01/23/24] budesonide-formoterol HFA 160 mcg-4.5 mcg/actuation aerosol inhaler (Symbicort) 2 puff inhalation Q12H PRN Cough 09/05/23 [History Confirmed 01/23/24] ciprofloxacin HCl 500 mg tablet (Cipro) 500 mg PO Q12H #20 tabs 01/17/24 [Rx Confirmed 01/23/24] metronidazole 500 mg tablet 500 mg PO Q8H #30 tabs 01/17/24 [Rx Confirmed 01/23/24] Active Medicatio
[2024-01-25 08:43] LABS: Tacrolimus Prograf 5.2 mcg/L
[2024-01-29 14:58] LABS: Osmolality, Urine 210 mOsm/kg (50-1200)
== END 2024-01-24 19:00 | disposition short-term general hospital (02) | DRG 683 ==
LOC: ANHED 09:44 → ANH3MEDSUR 10:34
PROVIDERS: Emergency Medicine; Internal Medicine Nephrology; Student in an Organized Health Care Education/Training Program; Admitting Provider Family Medicine; Emergency Provider Emergency Medicine; PCP Physician Assistant Medical; Visit Provider Nurse Practitioner Acute Care
DX: N17.9 Acute kidney failure, unspecified (principal); K57.92 Diverticulitis of intestine, part unspecified, without perforation or abscess without bleeding; Z94.4 Liver transplant status; R07.89 Other chest pain; E86.0 Dehydration; M19.90 Unspecified osteoarthritis, unspecified site; E11.22 Type 2 diabetes mellitus with diabetic chronic kidney disease; N18.30 Chronic kidney disease, stage 3 unspecified; L40.9 Psoriasis, unspecified; D17.71 Benign lipomatous neoplasm of kidney; N20.0 Calculus of kidney; R05.3 Chronic cough; U09.9 Post COVID-19 condition, unspecified; E66.9 Obesity, unspecified; Z68.35 Body mass index [BMI] 35.0-35.9, adult; Z87.891 Personal history of nicotine dependence
CPT/HCPCS: 36415; 71046; 76775; 80048; 80053; 80197; 81001; 82550; 82570; 83036; 83690; 83735; 83930; 83935; 84100; 84156; 84300; 84484; 84540; 85025; 85610; 85730; 85999; 93005; 96360; 99285; A9270; J0744; J2765; J3010; J7030; J7120

== ENCOUNTER 2024-02-11 11:27 | Outpatient (CLI) | payer MEDICARE, SELFPAY ==
[2024-02-11 11:45] LABS: Basophils Percent Auto 0.5 % (0.2-1.2); Eosinophils Absolute Auto 0.2 K/mm3 (0-0.3); Eosinophils Percent Auto 3.3 % (0-4.4); Hematocrit 28.8 % (37.0-47.0); Immature Granulocyte Absolute 0.02 K/mm3 (0.00-0.031); Immature Granulocyte Percent A 0.3 % (0-0.5); Lymphocytes Absolute Auto 0.83 K/mm3 (0.9-3.2); Lymphocytes Percent Auto 13.7 % (18.3-44.2); Mean Corpuscular HGB Conc 31.3 g/dl (32-36); Mean Corpuscular Volume 89.7 fl (80-100); Mean Platelet Volume 10.7 fl (7.4-10.4); Monocytes Absolute Auto 0.6 K/mm3 (0.1-0.6); Monocytes Percent Auto 9.8 % (2.6-8.5); Neutrophils Absolute Auto 4.4 K/mm3 (1.3-6.7); Neutrophils Percent Auto 72.4 % (45.5-73.1); Platelet Count Result 213 k/mm3 (150-375); Red Blood Count 3.21 M/mm3 (4.2-5.4); Red Cell Distribution Width 16.2 % (11.5-14.5)
[2024-02-11 12:06] LABS: Alanine Aminotransferase 13 U/L (6-35); Albumin Level 3.8 g/dL (3.5-5.1); Alkaline Phosphatase 69 U/L (38-126); Anion Gap 11 mmol/L (4-12); Aspartate Amino Transferase 22 U/L (14-36); Blood Urea Nitrogen 25 mg/dL (7-17); Calcium 8.8 mg/dL (8.4-10.2); Carbon Dioxide 25 mmol/L (22-30); Chloride 98 mmol/L (98-107); Estimated Glomerular Filt Rate 24; Glucose 152 mg/dL (65-110); Potassium 3.6 mmol/L (3.4-5.0); Sodium 134 mmol/L (137-145)
== END 2024-02-11 11:28 | disposition home or self-care (01) ==
LOC: ANHLAB 11:32
PROVIDERS: PCP Physician Assistant Medical; Visit Provider Physician Assistant Medical
DX: N17.9 Acute kidney failure, unspecified (principal); Z94.4 Liver transplant status; R50.9 Fever, unspecified
CPT/HCPCS: 36415; 80053; 80197; 85025

== ENCOUNTER 2024-02-18 09:55 | Outpatient (CLI) | payer MEDICARE, SELFPAY ==
[2024-02-18 10:27] LABS: Basophils Absolute Auto 0.1 K/mm3 (0.0-0.1); Basophils Percent Auto 0.9 % (0.2-1.2); Eosinophils Absolute Auto 0.3 K/mm3 (0-0.3); Eosinophils Percent Auto 4.8 % (0-4.4); Hematocrit 30.9 % (37.0-47.0); Immature Granulocyte Absolute 0.08 K/mm3 (0.00-0.031); Immature Granulocyte Percent A 1.2 % (0-0.5); Lymphocytes Percent Auto 14.5 % (18.3-44.2); Mean Corpuscular HGB Conc 32.4 g/dl (32-36); Mean Corpuscular Hemoglobin 28.9 pg (26-34); Mean Corpuscular Volume 89.3 fl (80-100); Mean Platelet Volume 10.4 fl (7.4-10.4); Monocytes Absolute Auto 0.5 K/mm3 (0.1-0.6); Neutrophils Absolute Auto 4.9 K/mm3 (1.3-6.7); Neutrophils Percent Auto 71.6 % (45.5-73.1); Platelet Count Result 319 k/mm3 (150-375); Red Blood Count 3.46 M/mm3 (4.2-5.4); Red Cell Distribution Width 15.7 % (11.5-14.5); White Blood Count 6.9 K/mm3 (4.5-10.0)
[2024-02-18 10:37] LABS: Alanine Aminotransferase 13 U/L (6-35); Albumin Level 4.2 g/dL (3.5-5.1); Alkaline Phosphatase 79 U/L (38-126); Anion Gap 12 mmol/L (4-12); Aspartate Amino Transferase 19 U/L (14-36); Bilirubin,Total 1.1 mg/dL (0.2-1.3); Blood Urea Nitrogen 23 mg/dL (7-17); Calcium 9.4 mg/dL (8.4-10.2); Carbon Dioxide 24 mmol/L (22-30); Chloride 100 mmol/L (98-107); Estimated Glomerular Filt Rate 31; Glucose 170 mg/dL (65-110); Potassium 3.9 mmol/L (3.4-5.0); Sodium 136 mmol/L (137-145)
[2024-02-18 10:45] LABS: Iron 117 ug/dL (37-170)
[2024-02-18 10:54] LABS: Percent Iron Saturation 40 % (20-50)
[2024-02-19 14:38] LABS: Tacrolimus Prograf 5.1 mcg/L
== END 2024-02-18 09:56 | disposition home or self-care (01) ==
PROVIDERS: PCP Physician Assistant Medical; Visit Provider Physician Assistant Medical
DX: E05.90 Thyrotoxicosis, unspecified without thyrotoxic crisis or storm (principal); Z94.4 Liver transplant status; E11.9 Type 2 diabetes mellitus without complications; E86.0 Dehydration; N17.9 Acute kidney failure, unspecified; D64.9 Anemia, unspecified; E87.20 Acidosis, unspecified
CPT/HCPCS: 36415; 80053; 80197; 82728; 83540; 83550; 84443; 85025

== ENCOUNTER 2024-03-03 09:00 | Outpatient (CLI) | payer MEDICARE, SELFPAY ==
[2024-03-03 09:21] LABS: Basophils Absolute Auto 0.1 K/mm3 (0.0-0.1); Basophils Percent Auto 0.7 % (0.2-1.2); Eosinophils Absolute Auto 0.3 K/mm3 (0-0.3); Eosinophils Percent Auto 4.8 % (0-4.4); Hematocrit 32.9 % (37.0-47.0); Hemoglobin 10.7 g/dL (12.0-15.0); Immature Granulocyte Absolute 0.05 K/mm3 (0.00-0.031); Immature Granulocyte Percent A 0.7 % (0-0.5); Lymphocytes Absolute Auto 1.15 K/mm3 (0.9-3.2); Lymphocytes Percent Auto 16.1 % (18.3-44.2); Mean Corpuscular HGB Conc 32.5 g/dl (32-36); Mean Corpuscular Hemoglobin 28.8 pg (26-34); Mean Corpuscular Volume 88.7 fl (80-100); Mean Platelet Volume 10.4 fl (7.4-10.4); Monocytes Absolute Auto 0.4 K/mm3 (0.1-0.6); Monocytes Percent Auto 5.9 % (2.6-8.5); Neutrophils Absolute Auto 5.1 K/mm3 (1.3-6.7); Neutrophils Percent Auto 71.8 % (45.5-73.1); Platelet Count Result 220 k/mm3 (150-375); Red Blood Count 3.71 M/mm3 (4.2-5.4); Red Cell Distribution Width 15.6 % (11.5-14.5); White Blood Count 7.1 K/mm3 (4.5-10.0)
[2024-03-03 09:32] LABS: Anion Gap 9 mmol/L (4-12); Blood Urea Nitrogen 20 mg/dL (7-17); Calcium 9.6 mg/dL (8.4-10.2); Carbon Dioxide 24 mmol/L (22-30); Chloride 103 mmol/L (98-107); Estimated Glomerular Filt Rate 43; Glucose 160 mg/dL (65-110); Sodium 136 mmol/L (137-145)
== END 2024-03-03 09:01 | disposition home or self-care (01) ==
LOC: ANHLAB 09:01
PROVIDERS: PCP Physician Assistant Medical; Visit Provider Physician Assistant Medical
DX: R60.9 Edema, unspecified (principal); Z94.4 Liver transplant status; E86.0 Dehydration; E11.22 Type 2 diabetes mellitus with diabetic chronic kidney disease; N18.30 Chronic kidney disease, stage 3 unspecified
CPT/HCPCS: 36415; 80048; 85025

== ENCOUNTER 2024-03-16 17:24 | Emergency (ER) | payer MEDICARE, SELFPAY ==
[2024-03-16 17:35] VITALS: BP 99/63; PULSE 108; RESP 16; TEMP 36.8; O2SAT 98
--- NOTE | 2024-03-16 17:51 | ED.GENADULT ---
HPI - General Adult General Chief complaint: Abdominal Pain Stated complaint: diverticulitis flare x2d Time Seen by Provider: 03/16/24 17:46 Source: patient Mode of arrival: ambulatory Limitations: no limitations History of Present Illness HPI narrative: This is an 83-year-old female who presents to the ED for chief complaint of abdominal pain on the right side the past couple of days. Reports that this feels exactly like diverticulitis that she has had a past. States that she has had diverticulitis on the right before. Reports that she has surgical history of liver transplant 10 years ago. Denies urinary symptoms, fevers, chills, diarrhea, GI bleeding symptoms. Related Data Home Medications Medication Instructions Recorded Confirmed [id number]-[id number]-jgyzs ac 400 1 tablet PO .od 01/10/22 02/05/24 mcg-calcium carb 500 mg-vit K1 20 mcg tablet (Women's 50 Plus Multivitamin) budesonide-formoterol HFA 160 2 puff inhalation Q12H PRN Cough 09/05/23 02/05/24 mcg-4.5 mcg/actuation aerosol inhaler (Symbicort) tacrolimus 1 mg capsule, 1 mg PO Q12H 02/01/24 02/05/24 immediate-release Allergies Allergy/AdvReac Type Severity Reaction Status Date / Time hydromorphone Allergy Mild HIVES, Verified 03/16/24 17:26 SWOLLEN codeine Allergy Unknown Itching Verified 03/16/24 17:26 Iodinated Contrast Media Allergy Unknown Rash Verified 03/16/24 17:26 Review of Systems Review of Systems: All systems as dictated in HPI [facility] Past Medical History Medical History Aortic valve sclerosis Arthritis Benign essential tremor Chronic bronchitis Diabetes Dry eyes Eczema History of GI bleed History of retinal detachment Liver transplant recipient Mitral valve annular calcification Obesity Psoriasis Renal insufficiency Surgical History Surgical History History of bladder suspension procedure History of liver transplant 03/2010 History of tonsillectomy Family History Family History Mother Cerebrovascular accident Sibling Family history of lung cancer Family history of malignant neoplasm of breast in first degree relative Other Family history of malignant neoplasm Social History Social History (Reviewed 02/12/24 @ 11:12 by Brisa Kingsley [facility] [address]) Smoking packs per day: 0.5 Smoking cigarettes per day: 10.0 Years smoked: 15 Smoking pack-years: 7.50 Smoking status: Former smoker Second hand tobacco smoke exposure: Yes Alcohol intake: former Alcohol use details: rare occasions Substance use: never Substance use type: does not use Do You Feel Safe in your Home?: Yes Lack of Transportation: No Lack of Food: Never True Current Housing: I Have Housing Concerned About Future Housing: No Difficulty Paying Gas/Electric Bills: No Difficulty Paying for Meds: No Currently Unemployed: No Education: Associate Degree Difficulty w/ Childcare or Family Care: No Living arrangements: with family Occupation/Education: retired Gender identity (if verbalized by the patient): Female Sexual Orientation (if Verbalized by the Patient): Straight or Heterosexual Spiritual care concerns: No Exam Narrative: GENERAL: Well-appearing, well-nourished, and in no acute distress. HEAD: Normocephalic, atraumatic. EYES: PERRLA and EOMI. ENT: Nares clear, no rhinorrhea or epistaxis. Mucous membranes moist. Oropharynx without tonsillar hypertrophy exudate or other lesions. NECK: Supple. No adenopathy or masses. CHEST: No respiratory distress. Clear to auscultation. No wheezes rales or rhonchi HEART: Regular rate and rhythm. No murmur heard. Normal peripheral pulses. ABDOMEN: Tenderness on the right lower quadrant. Soft, otherwise nontender, nondistended, normal active bowel sounds. Negative flank tenderness bilaterally MSK: Normal range of motion. No edema. SKIN: Warm, dry, no rash. NEURO: Alert and oriented x4. No focal deficits. PSYCH: Normal mood and affect. Course Vital Signs Vital signs: Vital Signs Temperature 98.2 F 03/16/24 17:35 Pulse Rate 108 H 03/16/24 17:35 Respiratory Rate 16 03/16/24 17:35 Blood Pressure 99/63 L 03/16/24 17:35 Pulse Oximetry 98 03/16/24 17:35 Oxygen Delivery Room Air 03/16/24 17:35 Temperature 98.2 F 03/16/24 17:35 Pulse Rate 108 H 03/16/24 17:35 Respiratory Rate 16 03/16/24 17:35 Blood Pressure 99/63 L 03/16/24 17:35 Pulse Oximetry 98 03/16/24 17:35 Oxygen Delivery Room Air 03/16/24 17:35 Medical Decision Making MDM Narrative Medical decision making narrative: This patient has elected to leave against medical advice. In my opinion, the patient has capacity to leave AMA. The patient is clinically sober, free from distracting injury, appears to have intact insight and judgment and reason, and in my opinion has capacity to make decisions. I explained to the patient that her symptoms may represent abdominal infection or other dangerous pathology and the patient verbalized understanding of my concerns. I had a discussion with the patient about their workup and results, and that they may still have life-threatening infection. I informed the patient that the next step in diagnosis and treatment would be obtaining an IV and obtaining CT scan and they verbalized understanding of this as well. I explained the risks of leaving without further workup or treatment, which included reasonably foreseeable complications such as , serious injury, permanent disability, and . I also offered alternatives to departing AMA such as assigning the patient a different provider or an alternate workup pathway. The patient is refusing any further care, specifically IV placement and IV therapy and is leaving against medical advice. I am unable to convince the patient to stay. I have asked them to return as soon as possible to complete their evaluation, and also explained that they were welcome to return to the ER for further evaluation whenever they choose. I have asked the patient to follow up with their primary doctor as soon as possible. I have answered all their questions. Patient signed AMA paperwork. Vital Signs Vital Signs: Vital Signs Temperature 98.2 F 03/16/24 17:35 Pulse Rate 108 H 03/16/24 17:35 Respiratory Rate 16 03/16/24 17:35 Blood Pressure 99/63 L 03/16/24 17:35 Pulse Oximetry 98 03/16/24 17:35 Oxygen Delivery Room Air 03/16/24 17:35 Temperature 98.2 F 03/16/24 17:35 Pulse Rate 108 H 03/16/24 17:35 Respiratory Rate 16 03/16/24 17:35 Blood Pressure 99/63 L 03/16/24 17:35 Pulse Oximetry 98 03/16/24 17:35 Oxygen Delivery Room Air 03/16/24 17:35 Discharge Plan Discharge Clinical Impression: Abdominal pain Patient Disposition: Left Against Medical Advice Condition: Stable Prescriptions: No Action budesonide-formoterol [Symbicort] 160-4.5 mcg/actuation HFA aerosol inhaler 2 puff inhalation Q12H PRN (Reason: Cough) oxycodone-acetaminophen [Percocet] 5-325 mg tablet 0.5 tablet PO Q3H PRN (Reason: pain) Qty: 30 0RF Women's 50 Plus Multivitamin 400 mcg-500 mg calcium-20 mcg tablet 1 tablet PO .od lidocaine 4 % adhesive patch,medicated 1 patch topical DAILY PRN (Reason: pain) Qty: 5 0RF Rx Instructions: Right side of chest hydrocortisone 2.5 % cream 1 applic topical BID PRN (Reason: skin irritation) Qty: 20 0RF acetaminophen 500 mg capsule 1,000 mg PO TID PRN (Reason: pain) Qty: 90 0RF tacrolimus 1 mg capsule 1 mg PO Q12H mupirocin 2 % ointment 1 applic topical BID Qty: 22 1RF Follow-up/Referrals: Mary Jo Ruggiero PA-C [Primary Care Provider] -
--- NOTE | 2024-03-16 18:15 | PC.NURSE ---
In room to place SLN per ERP order and pt refused. Reports she already had labs drawn and doesn't need SLN. Pt reports all she wants is a CT scan and she does not need SLN because she is allergic to CT contrast. Spoke with pt's nurse and she reports she did not get labs yet and attempted SLN without success. I also attempted SLN to right AC where pt directed me to stick and SLN would not advance and blood would not draw. Pt then said that's it I'm leaving. my doctor ordered a CT before and I didn't need any of this. Informed pt ERP placed orders and our protocols are different than outpt. Pt then stated stated that's why I didn't even want to come here. Pt has been rude to staff since her arrival to room H2. ERP notifed of pt's plans and pt got dressed and ambulated out of the ED with a steady gait.
== END 2024-03-16 18:35 | disposition left against medical advice (07) ==
PROVIDERS: Emergency Provider Physician Assistant; PCP Physician Assistant Medical
DX: R10.9 Unspecified abdominal pain (principal); Z94.4 Liver transplant status; E11.9 Type 2 diabetes mellitus without complications; E66.9 Obesity, unspecified; Z68.32 Body mass index [BMI] 32.0-32.9, adult; Z87.891 Personal history of nicotine dependence
CPT/HCPCS: 99281

== ENCOUNTER 2024-12-13 07:38 | Outpatient (CLI) | payer MEDICARE, SELFPAY ==
--- NOTE | ~2024-12-13 | XR_ITS ---
EXAM: XR shoulder RT min 2V DATE: 12/13/2024 07:51 HISTORY: M25.511 - Pain in right shoulder . COMPARISON: None available. FINDINGS: Decreased mineralization. No fracture or dislocation. No lytic or blastic lesion. Mild AC joint and glenohumeral joint degenerative change. Cerclage wire in the proximal humerus. Widening of the subacromial space. No erosion or periosteal change. Multiple calcified granulomas in the lung. IMPRESSION: Osteopenia. Mild polyarticular osteoarthritis of the right shoulder. Subacromial widening , may indicate a component of joint laxity or joint effusion. Reviewed, dictated and finalized at location K. IMPRESSION: Osteopenia. Mild polyarticular osteoarthritis of the right shoulder . Subacromial widening, may indicate a component of joint laxity or joint effus ion.
== END 2024-12-13 07:39 | disposition home or self-care (01) ==
LOC: MICIMG 07:38
PROVIDERS: PCP Physician Assistant Medical; Visit Provider Physician Assistant Medical
DX: M85.811 Other specified disorders of bone density and structure, right shoulder (principal); M19.011 Primary osteoarthritis, right shoulder
CPT/HCPCS: 73030

== ENCOUNTER 2025-02-25 13:51 | Outpatient (CLI) | payer MEDICARE, SELFPAY ==
--- NOTE | ~2025-02-25 | US_ITS ---
EXAMINATION: US soft tissue LE LT DATE: 02/25/2025 14:13 INDICATION: Localized swelling, mass or lump at the lateral left lower leg TECHNIQUE: Multiple grayscale and Doppler ultrasound images of the region of concern at the lateral left lower leg were obtained. COMPARISON: None FINDINGS: There is hypoechoic reticular pattern of focal subcutaneous edema in the subcutaneous tissues at the region of concern. No abnormal masses or fluid collections identified. IMPRESSION: 1. Small region of focal subcutaneous edema responding to the region of the palpable abnormality favoring an inflammatory etiology. No discrete masses or fluid collections identified. Reviewed, dictated and finalized at location A. IMPRESSION: 1. Small region of focal subcutaneous edema responding to the region of the pal pable abnormality favoring an inflammatory etiology. No discrete masses or flui d collections identified.
== END 2025-02-25 13:52 | disposition home or self-care (01) ==
LOC: MICIMG 13:54
PROVIDERS: PCP Physician Assistant Medical; Visit Provider Nurse Practitioner Adult Health
DX: R22.42 Localized swelling, mass and lump, left lower limb (principal)
CPT/HCPCS: 76882